=== PATIENT | male | born 1935 | race Caucasian/White ===

== ENCOUNTER → 2019-06-21 09:46 | Day surgery (SDC) | payer MEDICARE, OTHER ==
[~2019-06-21 09:46] MED LIST: Acetaminophen TAB* 325 MG PO PRN; Diazepam TAB(*) 5 MG ONE; Heparin 2 UNITS/ML IVPREMIX* 1,000 ML IV ONE; Heparin 2 UNITS/ML IVPREMIX* 3,000 ML IV ONE; Iohexol 350 (CONTRAST) 200 ML MDV IV ONE; Lidocaine 1% INJ* 10 MG/ML 30 ML SDV ONE; Midazolam* 1 MG/ML 5 ML VIAL (5 MG) ONE; NS 0.9% 1000 ML** 1,000 ML IV SCH; diPHENhydraMINE PO* 25 MG ONE; fentaNYL* 50 MCG/ML 2 ML VIAL (100 MCG VIAL) ONE
[2019-06-21 10:37] LABS: ABS Eosinophils 0.1 10^3/ul (0-0.6); ABS Monocytes 0.6 10^3/ul (0-0.8); ABS Neutrophils 3.4 10^3/ul (1.5-7.7); Eosinophil % 2.5 %; Hematocrit 41 % (42-52); Hemoglobin 14.4 g/dL (14.0-18.0); Lymphocyte % 19.7 %; Mean Corpuscular HGB Conc 35 g/dL (31-36); Mean Corpuscular Hemoglobin 35 pg (27-31); Mean Corpuscular Volume 101 fL (80-94); Mean Platelet Volume 9.3 fL (7.4-10.4); Platelet Count 157 10^3/uL (150-450); Red Blood Count 4.06 10^6 /uL (4.18-5.48); Red Cell Distribution Width 13 % (10-15); White Blood Count 5.2 10^3/uL (3.5-10.8)
[2019-06-21 10:45] LABS: INR 0.97 (0.82-1.09)
[2019-06-21 10:54] LABS: BUN/Creatinine Ratio 17.3 (8-20); Calcium 9.2 mg/dL (8.6-10.3); EGFR African American 88.4 (>60); Potassium 4.6 mmol/L (3.5-5.0)
[2019-06-21 15:42] LABS: POC SO2 65 %
[2019-06-21 15:42] LABS: POC SO2 64 %
[2019-06-21 15:43] LABS: POC SO2 94 %
[2019-06-21 16:56] VITALS: BP 143/100
--- NOTE | 2019-06-21 23:52 | CATH ---
CC: Dr. Gooden * CARDIAC CATHETERIZATION REPORT: DATE OF PROCEDURE: 06/21/19 - [facility] CATH PROCEDURE: Right heart catheterization, left heart catheterization, coronary angiography, saphenous vein graft angiography, and internal mammary angiography. INDICATION: Aortic stenosis, coronary artery disease. The patient is an 84-year-old gentleman with a history of coronary artery disease, history of coronary artery bypass surgery in 2001. At that time, he had a YANCEY to his LAD, had saphenous vein graft to his PDA, posterolateral branch and OM vessel and a YANCEY to his LAD. The patient has been followed in my office, his most recent echocardiogram showed severe aortic stenosis with mild to moderate LV dysfunction. Cardiac catheterization was recommended in preparation for possible TAVR procedure. PROCEDURE: The patient was brought to the procedure room in a fasting state. Informed consent had been obtained prior to the procedure. All labs were reviewed. The patient was placed supine on the procedure table. His femoral areas were prepped and draped in the usual fashion. 1% lidocaine was used for local anesthesia. Using a Seldinger technique, his femoral vein was entered and an 8- Guinean sheath introducer was placed. Using the Seldinger technique, the femoral artery was entered and a 6-Guinean sheath introducer was placed. Through the 8- Guine[place] sheath introducer, a 7-[place] Veteran-Tip catheter was advanced up to the right heart and into the pulmonary arteries. Multiple hemodynamic and oxygen saturation tracings were obtained. Thermodilution and cardiac output was obtained. Through the femoral sheath, a 6-Guinean pigtail catheter was advanced to the aorta and multiple attempts were done to cross the aortic valve. The straight wire was actually able to enter the left ventricle; however, I was unable to thread the pigtail catheter across the catheter without a prolapsing out. The patient then had a 6-Guinean JL4 catheter placed and the left system was engaged. A 6-Guinean AR1 catheter was placed and injections of the right coronary artery and saphenous vein graft were done. An internal mammary catheter was then placed and subselective injection of the subclavian vein was done. At the end of the procedure, all sheaths and catheters were removed. The patient tolerated the procedure well with no complications. A total of 85 cc of Omnipaque dye was used. A total of 18 minutes of fluoro time was used. FINDINGS: Oxygen saturations: Right atrial saturation 65%, pulmonary artery saturation 64%, central aortic saturation 95%. Hemodynamics: Right atrial pressure of 14, right ventricular pressure 37/4 with an end diastolic pressure of 18. Pulmonary capillary wedge pressure of 16 , pulmonary artery pressure of 34/14 with a mean of 23. Central aortic blood pressure 144/64 with a mean of 93. Left ventricular pressure could not be measured. Cardiac output 5 Venu, 4.3 L per minute. Cardiac output by thermodilution, 4.5 L per minute. Coronary arteries: 1. Left main artery: Left main was normal in size. It bifurcated into the LAD and circumflex artery. There was mild calcification of the left main artery. There was no evidence of stenosis. 2. Left anterior descending artery: The LAD had mild calcification of the proximal vessel. The LAD gave off 1 diagonal vessel and then was occluded 100% after the LAD. There was competitive flow to the D1 vessel via collaterals. 3. The left circumflex artery was normal in size. It gave off 2 obtuse marginal branches. There was mild calcification of the proximal vessel. The circumflex itself was without disease. The first OM vessel had a 90% mid LAD stenosis, and a very tortuous vessel. The remainder of the vessel was without disease. OM2 was without significant disease. 4. Right coronary artery: The right coronary artery was flush occluded with the aorta. There was heavy calcification of the proximal right coronary artery. 5. Saphenous vein graft to PDA, posterolateral branch and OM3 was open and patent. The anastomosis to all 3 was intact. There was retrograde filling of the entire right coronary artery. 6. YANCEY to the LAD. The subclavian artery had severe tortuosity. It looked like there was also potentially an ostial stenosis of the subclavian artery. I could not get the catheter up into the entire subclavian artery. A subselective injection of the subclavian artery demonstrated that the YANCEY to the LAD was open and patent. I could not see the anastomosis well. There was clearly distal filling of the LAD. IMPRESSION: 1. Likely severe aortic stenosis, unable to cross the aortic valve despite advancing a wire across the aortic valve into the left ventricle. 2. Normal pulmonary artery pressures. 3. Normal cardiac output. 4. Severe 3-vessel coronary artery disease as described above. 5. Saphenous vein graft to posterior descending artery, posterolateral branch and obtuse marginal 1 was open and patent. 6. Left internal mammary artery to the left anterior descending is open and patent. RECOMMENDATIONS: The patient will be referred for evaluation for TAVR. I do not believe the OM1 vessel with a 95% stenosis would need to be addressed prior to TAVR. [id number]/[facility] #: [id number] MTDD
== END | disposition home or self-care (01) ==
LOC: CHICATH 09:46
PROVIDERS: ATTEND Specialist
DX: I25.10 Atherosclerotic heart disease of native coronary artery without angina pectoris (principal); I35.0 Nonrheumatic aortic (valve) stenosis; I44.7 Left bundle-branch block, unspecified; Z95.5 Presence of coronary angioplasty implant and graft; I10 Essential (primary) hypertension; Z85.46 Personal history of malignant neoplasm of prostate; E78.00 Pure hypercholesterolemia, unspecified; J43.9 Emphysema, unspecified; Z87.891 Personal history of nicotine dependence
CPT/HCPCS: 36415; 80048; 82803; 85025; 85610; 93456; 99156; 99157; A9270-GY; C1769; C1887; J1644; J2250; J3010